=== PATIENT | male | born 2000 | race Caucasian/White ===

== ENCOUNTER 2023-06-18 06:31 | Day surgery (SDC) | payer OTHER, SELFPAY ==
[2023-06-18] VITALS (8 sets, daily range): BP systolic 117–143; BP diastolic 49–79; BMI 23.3
[2023-06-18] MEDS: TYLENOL 1000 MG PO (11:36)
[2023-06-18] MEDS: NORMOSOL-R 1000 IV (11:36)
--- NOTE | 2023-06-18 12:11 | W.SUR.PREOP ---
Pre-Operative Surgical Note
-
I have examined this patient prior to the performance of the scheduled procedure.
The patient's condition is unchanged from the time of the current History and
Physical and the patient is able to undergo the scheduled procedure.
--- NOTE | 2023-06-18 15:33 | W.IMMPOSTOP ---
Surgical Immed Post Op Note
-
Primary Surgeon: Frank Padilla MD
Assisting Surgeon: Hector Varma, PGY1
Pre-op Diagnosis: Pilonidal cyst
Post-op Diagnosis: Same
Procedure Performed:
1. Pilonidal cyst excision with local advancement (Karydakis) flap closure.
Anesthesia Type: General
Specimen / Cultures: Pilonidal cyst
Estimated Blood Loss: 1 cc
Complications: None
Operative Findings: Pilonidal cyst with 4 midline pits. Final wound dimensions were 4 x 3 cm. 1 cm thick, 2 cm deep Karydakis flap developed and an off midline incision was closed.
--- NOTE | 2023-06-18 15:38 | OR.RPT ---
Operative Report
Operative Report
Patient Name: Jass Paniagua
: 2000
Date of Operation: 06/18/2023
Preoperative Diagnosis: Pilonidal Cyst
Postoperative Diagnosis: Same
Procedure(s):
1. Excision of pilonidal cyst
2. Karydakis Flap (Local advancement flap)
Surgeon(s):
Dr. Padilla
Construction Inspector(s):
None
Anesthesia: General
Estimated Blood Loss: 1 cc
Urine Output: None
Drains/Lines/Implants: None
Specimens: Pilonidal Cyst
Indication for surgery:
The patient was found to have a pilonidal cyst. After review of their therapeutic options, they elected to pursue operative excision with flap coverage
Operative Findings: Pilonidal cyst with 4 midline pits. Final wound dimensions were 4 x 3 cm. 1 cm thick, 2 cm deep Karydakis flap developed and an off midline incision was closed.
Details of the operation:
After successful induction of general anesthesia, the patient was rotated prone and placed in the jackknife position. The hair around the buttocks was clipped and the area was prepped and draped in the usual fashion. A team timeout was performed.
An off midline (to the patient's left), asymmetric ellipse was marked. The operative field area was anesthetized with 20cc quarter percent Marcaine with epi. An incision was made through the skin line sharply with a 15 blade and dissection carried
down through subcutaneous tissue. Medially the incision was taken at a 90 degrees down towards the coccyx, laterally incision was taken out of 45 degree angle. The entire cyst along with the tracts and midline pits were excised, no disease was
left behind. The wound was irrigated with sterile saline and hemostasis was achieved. The specimen was passed off the field. We then began developing our flap on the medial aspect of the wound, roughly 1 cm thick, and 2 cm deep. The tape holding
the buttocks was released and it appeared the flap would close with minimal tension. The first layer of subcutaneous tissue was approximated using a running 0 PDS suture. The second layer was approximated using a running 0 Vicryl. The skin was
then approximated in 2 layers using interrupted 3-0 Vicryl's followed by a running 4-0 Monocryl. The skin was then glued with Dermabond. The patient tolerated the procedure well, and returned to the Recovery Room in stable condition. Sponge and
instrument counts were correct.
I was the attending physician and present for all critical portions of the case
Frank Padilla MD
== END 2023-06-18 15:40 | disposition home or self-care (01) ==
LOC: SDS 06:31
PROVIDERS: ATTENDING PHYSICIAN Surgery
DX: L05.91 Pilonidal cyst without abscess (principal)
CPT/HCPCS: 11772; 14301; 88304

== ENCOUNTER 2023-11-10 06:27 | Day surgery (SDC) | payer OTHER, SELFPAY ==
[2023-11-10 07:48] VITALS: BP 148/78
[2023-11-10] MEDS: TYLENOL 1000 MG PO (07:56)
[2023-11-10] MEDS: NORMOSOL-R/PLASMALYTE-A 1000 IV (07:57)
[2023-11-10 08:01] VITALS: BMI 24.9
[2023-11-10 08:02] VITALS: BMI 24.9
--- NOTE | 2023-11-10 09:18 | HP.FOC2 ---
Focused History & Physical
Chief Complaint
HPI:
Chief Complaint: Recurrent pilonidal disease
HPI / Indication for Planned Procedure: This is a 23-year-old male status post excision of a pilonidal cyst with local flap advancement on 06/18/2023 who presented to my office in August with a small recurrence about an inch lower than his previous
pits. His old incision is well-healed but he has either developed a recurrence over this spit was missed that his initial operation. After discussion of risk benefits and alternatives he was consented for surgical management of his recurrent
disease.
Relevant Past Medical History: Negative
Relevant Social History: Negative
Relevant Family History: Negative
Relevant Past Surgical History: Positive for (pilonidal cyst excision with flap reconstruction.)
Review of Systems
Review of Pertinent Systems: All Systems Negative
Medication
See Medication form for detailed medications: Yes
Medication List (including Herbals & OTC):
cetirizine 10 mg tablet (Zyrtec) 10 mg PO DAILY PRN allergies 06/15/23
Medications Reviewed: Yes
Allergies and Reactions
Patient has Allergies: No
Noted Allergies and Reactions:
Allergy/AdvReac Type Severity Reaction Status Date / Time
pollen extracts Allergy scratchy Verified 11/10/23 07:47
throat,
congestion
Pertinent Physical Exam
All Other Systems: Negative
Head/Neck: Normal
Diagnosis / Assessment
This is a 23-year-old male who presents with recurrent pilonidal disease
Plan / Procedure
Excision of pilonidal cyst.
Anesthesia/Sedation to be done by Anesthesia Provider: Yes
[2023-11-10 10:30] VITALS: BP 125/60
--- NOTE | 2023-11-10 10:44 | W.IMMPOSTOP ---
Surgical Immed Post Op Note
-
Primary Surgeon: Frank Padilla MD
Assisting Surgeon: None
Pre-op Diagnosis: Recurrent pilonidal disease
Post-op Diagnosis: Infected recurrent pilonidal disease
Procedure Performed: Incision and drainage of a infected pilonidal sinus
Anesthesia Type: MAC
Specimen / Cultures: None
Estimated Blood Loss: 3 cc
Complications: None
Operative Findings: Single sinus about 1-1/2 cm inferior to the inferior most aspect of her his previous incision. There was some thin purulent fluid as well as hair that was evacuated from the wound. A pit picking procedure was performed to
excise the epithelialized tract which was thoroughly irrigated to remove all hair, curetted and then packed with gauze.
POST OP PLAN:
Will discharge home today.
Will send home with antibiotics x 3 days.
Wound care instructions reviewed with patient and mother.
[2023-11-10 10:45] VITALS: BP 105/82
--- NOTE | 2023-11-10 10:53 | OR.RPT ---
Operative Report
Operative Report
Patient Name: Jass Paniagua
: 2000
Date of Operation: 11/10/2023
Preoperative Diagnosis: Recurrent pilonidal sinus
Postoperative Diagnosis: Infected pilonidal sinus
Procedure(s):
1. Gips procedure/excision and drainage of an infected pilonidal sinus
Surgeon(s):
Dr. Padilla
Income Tax Advisor(s):
None
Anesthesia: MAC
Estimated Blood Loss: 3 cc
Urine Output: None
Drains/Lines/Implants: None
Specimens: None
Indication for surgery:
The patient was found to have a recurrent pilonidal sinus. After review of their therapeutic options, they elected to pursue operative excision
Operative Findings: Single sinus about 1-1/2 cm inferior to the inferior most aspect of her his previous incision. There was some thin purulent fluid as well as hair that was evacuated from the wound. A pit picking procedure was performed to
excise the epithelialized tract which was thoroughly irrigated to remove all hair, curetted and then packed with gauze.
Details of the operation:
After successful induction of anesthesia, the patient was rotated prone and placed in the jackknife position. The hair around the buttocks was clipped and the area was prepped and draped in the usual fashion. A team timeout was performed. His
previous incision was noted, and roughly 1.5 cm below this was a single pilonidal sinus which was gently probed with expression of thin purulent material as well as hair. Using a punch biopsy the entire sinus was cored out/excised. Using curettes
the edges of the wound were debrided until we were certain that we were on healthy tissue. The wound was then aggressively irrigated using saline and hemostasis was achieved. The wound was then packed with quarter inch packing strip. The wound
was covered with fluffs followed by mesh underwear. The patient tolerated the procedure well, and returned to the Recovery Room in stable condition. Sponge and instrument counts were correct.
I was the attending physician and present for all portions of the case.
.
Frank Padilla MD
[2023-11-10 11:00] VITALS: BP 146/58
== END 2023-11-10 11:17 | disposition home or self-care (01) ==
LOC: SDS 06:27
PROVIDERS: ATTENDING PHYSICIAN Surgery
PROC: 0JB90ZZ Excision of Buttock Subcutaneous Tissue and Fascia, Open Approach (ICD-10-PCS; 2023-11-10)
DX: L05.02 Pilonidal sinus with abscess (principal)
CPT/HCPCS: 11771